=== PATIENT | female | born 1945 | race Caucasian/White ===

== ENCOUNTER 2023-07-18 11:36 | Emergency (ER) | payer OTHER ==
[~2023-07-18 11:36] MED LIST: AMIT10TA47 PO; HYDR-4004 PO; IBUP-974 PO; LISI2.5T12 PO; LOVA10TA2 PO
== END 2023-07-18 13:20 | disposition left against medical advice (07) ==
LOC: MED 11:36
DX: R94.31 Abnormal electrocardiogram [ECG] [EKG] (principal); Z53.21 Procedure and treatment not carried out due to patient leaving prior to being seen by health care provider